=== PATIENT | male | born 1985 | race Caucasian/White ===

== ENCOUNTER 2020-02-20 08:39 | Inpatient (IN) | payer BC, OTHER ==
[2020-02-20] MEDS ORDERED: ACETAMINOPHEN 1000 MG/100 ML VIAL (NON FORMULARY) IVPB ONE (10:49)
[2020-02-20] MEDS ORDERED: ACETAMINOPHEN INJECTION 100 ML IVPB ONE ×2 (11:57→19:43)
[2020-02-20 12:06] LABS: BASO % 0.6 % (0-2.0); EOS % 0.1 % (0-4.5); HEMATOCRIT 47.4 % (35.4-49); HEMOGLOBIN 17.5 GM/dL (11.7-16.9); LYMPH % 9.3 % (8-40); MCH 31.3 pg (25.7-33.7); MCHC 36.9 g/dl (32.0-35.9); MEAN CELL VOLUME 84.8 fl (80-96); MEAN PLT VOLUME 9.4 fl (7.5-11.1); MONO % 5.2 % (3.8-10.2); NEUT % 84.8 % (42.8-82.8); PLATELET COUNT 218 K/MM3 (134-434); RBC 5.59 M/mm3 (4.00-5.60); RDW 13.5 % (11.9-15.9); WHITE BLOOD COUNT 17.9 K/mm3 (4.0-10.0)
[2020-02-20 12:09] LABS: EPI CELLS 4 /uL (0-25.1); HYALINE CASTS 3 /uL (0-3.1); URINE APPEARANCE CLEAR; URINE BACTERIA 53 /uL (0-1359); URINE BILIRUBIN NEGATIVE (NEGATIVE); URINE COLOR YELLOW; URINE GLUCOSE (UA) 3+ (NEGATIVE); URINE KETONE 4+ (NEGATIVE); URINE LEUK ESTERASE NEGATIVE (NEGATIVE); URINE NITRITE NEGATIVE (NEGATIVE); URINE PROTEIN 3+ (NEGATIVE); URINE RBC 11 /uL (0-23.9); URINE UROBILINOGEN 0.2 mg/dL (0.2-1.0); URINE WBC 6 /uL (0-25.8)
[2020-02-20] MEDS ORDERED: SODIUM CHLORIDE 1,000 ML IV STA ×3 (12:11→15:27)
[2020-02-20 12:27] LABS: POTASSIUM 4.6 mmol/L (3.5-5.1)
[2020-02-20 12:30] LABS: ALBUMIN 4.3 g/dl (3.4-5.0); MAGNESIUM 1.8 mg/dL (1.8-2.4)
[2020-02-20 12:33] LABS: CREATININE 0.9 mg/dL (0.55-1.3)
[2020-02-20 12:34] LABS: BILIRUBIN,TOTAL 1.2 mg/dL (0.2-1)
[2020-02-20 13:33] LABS: BLOOD UREA NITROGEN 7.2 mg/dL (7-18); CALCIUM 7.6 mg/dL (8.5-10.1); TOT PROT 8.4 g/dl (6.4-8.2)
[2020-02-20] MEDS ORDERED: CEFTRIAXONE 1 GM in DEXTROSE 5%-WATER - 50 ML IVPB ONE (15:35)
[2020-02-20] MEDS ORDERED: CEFTRIAXONE 1 GM/50 ML BAG ONE (15:38)
[2020-02-20] MEDS ORDERED: ACETAMINOPHEN 1000 MG/100 ML VIAL (NON FORMULARY) IVPB PRN (19:08)
[2020-02-20] MEDS ORDERED: ONDANSETRON 4 MG/2 ML VIAL IVPUSH PRN (19:09)
[2020-02-20] MEDS ORDERED: LACTATED RINGERS SOLUTION 1,000 ML/1,000 ML INFUS.BAG IV SCH (19:15)
[2020-02-20] MEDS ORDERED: morphine CARPU-JECT 2 MG/1 ML DISP.SYRIN IVPUSH ONE (21:17)
[2020-02-21 00:15] VITALS: BMI 40.1
[2020-02-21] MEDS: morphine SULFATE 4 MG/ML VIAL IVPUSH PRN ×3 (00:56→20:36)
[2020-02-21] MEDS: PIPERACILLIN/TAZOB 3.375 GM 3.375 GM in DEXTROSE 5%-WATER - 50 ML IVPB SCH ×4 (02:00→17:17)
[2020-02-21] MEDS ORDERED: DEXTROSE 5%-WATER - 50 ML IVPB ONE ×3 (03:56→17:13)
[2020-02-21] MEDS ORDERED: PIPERACILLIN/TAZOBACTAM 3.375 GM VIAL IVPB ONE ×3 (03:56→17:13)
[2020-02-21] MEDS ORDERED: INSULIN (NOVOLOG) ASPART 100 UNITS/ML 10ML VIAL ONE ×2 (06:49→11:12)
[2020-02-21] MEDS: INSULIN SLIDING SCALE (NOVOLOG) 1 VIAL SQ SCH ×5 (06:50→21:33)
[2020-02-21 08:47] LABS: BASO % 0.3 % (0-2.0); EOS % 0.4 % (0-4.5); HEMATOCRIT 41.3 % (35.4-49); HEMOGLOBIN 14.5 GM/dL (11.7-16.9); LYMPH % 8.1 % (8-40); MCH 29.9 pg (25.7-33.7); MCHC 35.2 g/dl (32.0-35.9); MEAN PLT VOLUME 9.8 fl (7.5-11.1); NEUT % 85.2 % (42.8-82.8); PLATELET COUNT 190 K/MM3 (134-434); RBC 4.86 M/mm3 (4.00-5.60); RDW 13.6 % (11.9-15.9); WHITE BLOOD COUNT 17.9 K/mm3 (4.0-10.0)
[2020-02-21 09:07] LABS: CHLORIDE 106 mmol/L (98-107); POTASSIUM 3.7 mmol/L (3.5-5.1); SODIUM 137 mmol/L (136-145)
[2020-02-21 09:13] LABS: CALCIUM 8.2 mg/dL (8.5-10.1)
[2020-02-21 09:14] LABS: ALBUMIN 3.5 g/dl (3.4-5.0); ANION GAP 15 MMOL/L (8-16); BLOOD UREA NITROGEN 6.4 mg/dL (7-18); CO2 16 mmol/L (21-32); GLUCOSE,RANDOM 184 mg/dL (74-106)
[2020-02-21 09:16] LABS: AMYLASE 395 U/L (25-115)
[2020-02-21 09:17] LABS: CHOLESTEROL 252 mg/dL (50-200); CREATININE 0.7 mg/dL (0.55-1.3); SGOT/AST 31 U/L (15-37); SGPT/ALT 98 U/L (13-61); TRIGLYCERIDES 814 mg/dL (0-150)
[2020-02-21 09:18] LABS: BILIRUBIN,TOTAL 1.2 mg/dL (0.2-1); LDL CHOLESTEROL (ONLY SJRH) 54 mg/dL (5-100); TOT PROT 7.2 g/dl (6.4-8.2)
[2020-02-21 09:19] LABS: HDL CHOLESTEROL 37 mg/dL (40-60)
[2020-02-21 09:24] LABS: ALK PHOS 75 U/L (45-117); LIPASE 2056 U/L (73-393)
[2020-02-21] MEDS: ENOXAPARIN NA (PORCINE) 40 MG/0.4 ML DISP.SYRIN SQ SCH (09:57)
[2020-02-21] MEDS: PANTOPRAZOLE SODIUM 40 MG VIAL IVPUSH SCH (09:57)
[2020-02-21] MEDS: LACTATED RINGERS SOLUTION 1,000 ML/1,000 ML INFUS.BAG IV SCH ×2 (10:00→22:17)
[2020-02-21] MEDS ORDERED: PANTOPRAZOLE SODIUM 40 MG in SODIUM CHLORIDE 100 ML IVPB SCH (10:00)
[2020-02-21] MEDS: VANCOMYCIN 1 GM in D5W (PRE-DOCKED) 1,000 MG/250 ML IVPB SCH ×4 (10:01→15:09)
[2020-02-22] MEDS ORDERED: PIPERACILLIN/TAZOBACTAM 3.375 GM VIAL IVPB ONE ×3 (01:01→16:53)
[2020-02-22] MEDS ORDERED: DEXTROSE 5%-WATER - 50 ML IVPB ONE ×3 (01:02→16:53)
[2020-02-22] MEDS: PIPERACILLIN/TAZOB 3.375 GM 3.375 GM in DEXTROSE 5%-WATER - 50 ML IVPB SCH ×3 (01:12→17:03)
[2020-02-22] MEDS: LACTATED RINGERS SOLUTION 1,000 ML/1,000 ML INFUS.BAG IV SCH ×2 (04:11→09:40)
[2020-02-22] MEDS: INSULIN SLIDING SCALE (NOVOLOG) 1 VIAL SQ SCH ×4 (06:07→21:29)
[2020-02-22 08:45] LABS: BASO % 0.4 % (0-2.0); EOS % 1.3 % (0-4.5); HEMATOCRIT 40.9 % (35.4-49); MCH 29.7 pg (25.7-33.7); MCHC 34.3 g/dl (32.0-35.9); MEAN CELL VOLUME 86.8 fl (80-96); MEAN PLT VOLUME 9.5 fl (7.5-11.1); MONO % 7.5 % (3.8-10.2); NEUT % 80.8 % (42.8-82.8); PLATELET COUNT 171 K/MM3 (134-434); RBC 4.71 M/mm3 (4.00-5.60); WHITE BLOOD COUNT 18.1 K/mm3 (4.0-10.0)
[2020-02-22 08:55] LABS: POTASSIUM 3.5 mmol/L (3.5-5.1)
[2020-02-22 08:58] LABS: CALCIUM 8.5 mg/dL (8.5-10.1)
[2020-02-22 08:59] LABS: BLOOD UREA NITROGEN 6.4 mg/dL (7-18)
[2020-02-22 09:02] LABS: CREATININE 0.7 mg/dL (0.55-1.3)
[2020-02-22 09:03] LABS: BILIRUBIN,TOTAL 1.2 mg/dL (0.2-1); TOT PROT 6.9 g/dl (6.4-8.2)
[2020-02-22] MEDS ORDERED: PT OWN MED DRAWER 7, Y5N ONE (09:31)
[2020-02-22] MEDS: ENOXAPARIN NA (PORCINE) 40 MG/0.4 ML DISP.SYRIN SQ SCH (09:44)
[2020-02-22] MEDS: PANTOPRAZOLE SODIUM 40 MG VIAL IVPUSH SCH (09:44)
[2020-02-22] MEDS: morphine SULFATE 4 MG/ML VIAL IVPUSH PRN (09:57)
[2020-02-22] MEDS ORDERED: PNEUMOCOCCAL 23 VACCINE 0.5 ML VIAL IM ONE (20:00)
[2020-02-22] MEDS ORDERED: FLU VACCINE (FLULAVAL) PF 60 MCG/0.5 ML SYRINGE 2020-2021 IM ONE (20:00)
[2020-02-22] MEDS ORDERED: PNEUMOC 13-VAL CONJ-DIP CRM/PF 0.5 ML DISP.SYRIN IM ONE (20:00)
[2020-02-22] MEDS ORDERED: INSULIN (NOVOLOG) ASPART 100 UNITS/ML 10ML VIAL ONE (20:24)
[2020-02-23] MEDS ORDERED: PIPERACILLIN/TAZOBACTAM 3.375 GM VIAL IVPB ONE ×3 (00:04→16:58)
[2020-02-23] MEDS ORDERED: DEXTROSE 5%-WATER - 50 ML IVPB ONE ×3 (00:05→16:59)
[2020-02-23] MEDS: morphine SULFATE 4 MG/ML VIAL IVPUSH PRN (00:26)
[2020-02-23] MEDS: PIPERACILLIN/TAZOB 3.375 GM 3.375 GM in DEXTROSE 5%-WATER - 50 ML IVPB SCH ×3 (01:06→17:05)
[2020-02-23] MEDS: INSULIN SLIDING SCALE (NOVOLOG) 1 VIAL SQ SCH ×4 (06:02→21:50)
[2020-02-23 08:27] LABS: BASO % 0.5 % (0-2.0); HEMATOCRIT 40.4 % (35.4-49); LYMPH % 9.8 % (8-40); MCH 29.8 pg (25.7-33.7); MCHC 34.6 g/dl (32.0-35.9); MEAN CELL VOLUME 86.1 fl (80-96); MEAN PLT VOLUME 9.2 fl (7.5-11.1); MONO % 7.8 % (3.8-10.2); NEUT % 79.9 % (42.8-82.8); PLATELET COUNT 192 K/MM3 (134-434); RBC 4.69 M/mm3 (4.00-5.60); RDW 13.8 % (11.9-15.9); WHITE BLOOD COUNT 14.8 K/mm3 (4.0-10.0)
[2020-02-23 08:32] LABS: POTASSIUM 3.2 mmol/L (3.5-5.1)
[2020-02-23 08:34] LABS: CALCIUM 8.5 mg/dL (8.5-10.1)
[2020-02-23 08:35] LABS: BLOOD UREA NITROGEN 5.8 mg/dL (7-18)
[2020-02-23 08:38] LABS: CREATININE 0.7 mg/dL (0.55-1.3)
[2020-02-23] MEDS ORDERED: PT OWN MED DRAWER 7, Y5N ONE (09:06)
[2020-02-23] MEDS: PANTOPRAZOLE SODIUM 40 MG VIAL IVPUSH SCH (09:10)
[2020-02-23] MEDS: ENOXAPARIN NA (PORCINE) 40 MG/0.4 ML DISP.SYRIN SQ SCH (09:13)
[2020-02-23] MEDS ORDERED: INSULIN (NOVOLOG) ASPART 100 UNITS/ML 10ML VIAL ONE (16:38)
[2020-02-24] MEDS ORDERED: DEXTROSE 5%-WATER - 50 ML IVPB ONE ×2 (01:05→08:53)
[2020-02-24] MEDS ORDERED: PIPERACILLIN/TAZOBACTAM 3.375 GM VIAL IVPB ONE ×2 (01:05→08:53)
[2020-02-24] MEDS: PIPERACILLIN/TAZOB 3.375 GM 3.375 GM in DEXTROSE 5%-WATER - 50 ML IVPB SCH ×2 (01:07→09:17)
[2020-02-24] MEDS: INSULIN SLIDING SCALE (NOVOLOG) 1 VIAL SQ SCH ×4 (06:45→21:01)
[2020-02-24] MEDS: ENOXAPARIN NA (PORCINE) 40 MG/0.4 ML DISP.SYRIN SQ SCH (09:17)
[2020-02-24 09:35] LABS: BASO % 0.6 % (0-2.0); EOS % 1.9 % (0-4.5); HEMOGLOBIN 14.1 GM/dL (11.7-16.9); LYMPH % 11.7 % (8-40); MCH 29.1 pg (25.7-33.7); MCHC 34.4 g/dl (32.0-35.9); MEAN CELL VOLUME 84.4 fl (80-96); MEAN PLT VOLUME 9.4 fl (7.5-11.1); MONO % 7.5 % (3.8-10.2); NEUT % 78.3 % (42.8-82.8); PLATELET COUNT 237 K/MM3 (134-434); RBC 4.86 M/mm3 (4.00-5.60); RDW 13.6 % (11.9-15.9); WHITE BLOOD COUNT 14.8 K/mm3 (4.0-10.0)
[2020-02-24] MEDS: PANTOPRAZOLE SODIUM 40 MG VIAL IVPUSH SCH (09:44)
[2020-02-24 09:53] LABS: POTASSIUM 3.1 mmol/L (3.5-5.1)
[2020-02-24 10:07] LABS: ALBUMIN 3.2 g/dl (3.4-5.0); BLOOD UREA NITROGEN 8.3 mg/dL (7-18); CALCIUM 8.7 mg/dL (8.5-10.1)
[2020-02-24 10:10] LABS: CREATININE 0.6 mg/dL (0.55-1.3)
[2020-02-24 10:12] LABS: BILIRUBIN,TOTAL 0.9 mg/dL (0.2-1); TOT PROT 7.5 g/dl (6.4-8.2)
[2020-02-24] MEDS: POTASSIUM CHLORIDE TABS 20 MEQ TABLET.ER (FP) PO SCH (13:52)
[2020-02-24] MEDS ORDERED: INSULIN (NOVOLOG) ASPART 100 UNITS/ML 10ML VIAL ONE ×2 (17:11→21:00)
[2020-02-24] MEDS ORDERED: ACETAMINOPHEN 325 MG TABLET (FP) PO PRN (23:11)
[2020-02-25] MEDS: INSULIN SLIDING SCALE (NOVOLOG) 1 VIAL SQ SCH ×4 (06:07→21:04)
[2020-02-25 08:14] LABS: BASO % 0.6 % (0-2.0); HEMATOCRIT 41.3 % (35.4-49); HEMOGLOBIN 14.4 GM/dL (11.7-16.9); LYMPH % 11.1 % (8-40); MCH 29.4 pg (25.7-33.7); MCHC 34.9 g/dl (32.0-35.9); MEAN CELL VOLUME 84.2 fl (80-96); MEAN PLT VOLUME 9.2 fl (7.5-11.1); MONO % 9.2 % (3.8-10.2); NEUT % 77.1 % (42.8-82.8); PLATELET COUNT 249 K/MM3 (134-434); RBC 4.91 M/mm3 (4.00-5.60); RDW 13.3 % (11.9-15.9); WHITE BLOOD COUNT 15.6 K/mm3 (4.0-10.0)
[2020-02-25 08:42] LABS: CALCIUM 8.7 mg/dL (8.5-10.1)
[2020-02-25 08:44] LABS: CREATININE 0.7 mg/dL (0.55-1.3)
[2020-02-25 08:46] LABS: BILIRUBIN,TOTAL 1.4 mg/dL (0.2-1); TOT PROT 7.2 g/dl (6.4-8.2)
[2020-02-25] MEDS: POTASSIUM CHLORIDE TABS 20 MEQ TABLET.ER (FP) PO SCH (10:24)
[2020-02-25] MEDS: PANTOPRAZOLE SODIUM 40 MG VIAL IVPUSH SCH (10:24)
[2020-02-25] MEDS: ENOXAPARIN NA (PORCINE) 40 MG/0.4 ML DISP.SYRIN SQ SCH (11:48)
[2020-02-25] MEDS: KCL 10 MEQ IVPB 10 MEQ/100 ML INFUS.BAG IVPB SCH ×3 (13:23→19:35)
[2020-02-25] MEDS ORDERED: INSULIN (NOVOLOG) ASPART 100 UNITS/ML 10ML VIAL ONE (20:10)
[2020-02-26] MEDS: INSULIN SLIDING SCALE (NOVOLOG) 1 VIAL SQ SCH ×4 (06:03→21:40)
[2020-02-26 09:27] LABS: BASO % 0.7 % (0-2.0); EOS % 2.1 % (0-4.5); HEMATOCRIT 38.3 % (35.4-49); HEMOGLOBIN 13.3 GM/dL (11.7-16.9); LYMPH % 15.1 % (8-40); MCH 29.4 pg (25.7-33.7); MCHC 34.7 g/dl (32.0-35.9); MEAN CELL VOLUME 84.8 fl (80-96); MEAN PLT VOLUME 9.5 fl (7.5-11.1); MONO % 11.3 % (3.8-10.2); NEUT % 70.8 % (42.8-82.8); PLATELET COUNT 215 K/MM3 (134-434); RBC 4.51 M/mm3 (4.00-5.60); RDW 13.2 % (11.9-15.9); WHITE BLOOD COUNT 12.7 K/mm3 (4.0-10.0)
[2020-02-26 09:43] LABS: POTASSIUM 3.1 mmol/L (3.5-5.1)
[2020-02-26 09:44] LABS: ALBUMIN 2.8 g/dl (3.4-5.0); BLOOD UREA NITROGEN 8.4 mg/dL (7-18); CALCIUM 8.6 mg/dL (8.5-10.1)
[2020-02-26 09:46] LABS: CREATININE 0.7 mg/dL (0.55-1.3)
[2020-02-26 09:47] LABS: BILIRUBIN,TOTAL 0.6 mg/dL (0.2-1)
[2020-02-26] MEDS: ENOXAPARIN NA (PORCINE) 40 MG/0.4 ML DISP.SYRIN SQ SCH (10:01)
[2020-02-26] MEDS: POTASSIUM CHLORIDE TABS 20 MEQ TABLET.ER (FP) PO SCH (10:01)
[2020-02-26] MEDS: PANTOPRAZOLE SODIUM 40 MG VIAL IVPUSH SCH (10:01)
[2020-02-26] MEDS: KCL 10 MEQ IVPB 10 MEQ/100 ML INFUS.BAG IVPB SCH ×3 (20:35→23:49)
[2020-02-26] MEDS: FENOFIBRIC ACID 135 MG CAP PO SCH (20:35)
[2020-02-26] MEDS: ROSUVASTATIN CA 10 MG TABLET (FP) PO SCH ×2 (20:35→21:00)
[2020-02-27] MEDS: INSULIN SLIDING SCALE (NOVOLOG) 1 VIAL SQ SCH ×2 (06:06→12:54)
[2020-02-27 06:41] VITALS: TEMP 98.2
[2020-02-27] MEDS ORDERED: metFORMIN HCL 500 MG TABLET (FP) PO SCH (07:00)
[2020-02-27 09:38] LABS: BASO % 0.8 % (0-2.0); EOS % 2.6 % (0-4.5); HEMOGLOBIN 13.6 GM/dL (11.7-16.9); MCH 29.7 pg (25.7-33.7); MCHC 34.8 g/dl (32.0-35.9); MEAN CELL VOLUME 85.3 fl (80-96); MEAN PLT VOLUME 9.6 fl (7.5-11.1); MONO % 13.5 % (3.8-10.2); NEUT % 64.1 % (42.8-82.8); PLATELET COUNT 212 K/MM3 (134-434); RBC 4.57 M/mm3 (4.00-5.60); RDW 13.1 % (11.9-15.9); WHITE BLOOD COUNT 10.3 K/mm3 (4.0-10.0)
[2020-02-27] MEDS: POTASSIUM CHLORIDE TABS 20 MEQ TABLET.ER (FP) PO SCH (10:08)
[2020-02-27] MEDS: FENOFIBRIC ACID 135 MG CAP PO SCH (10:08)
[2020-02-27] MEDS: PANTOPRAZOLE SODIUM 40 MG VIAL IVPUSH SCH (10:09)
[2020-02-27] MEDS: ENOXAPARIN NA (PORCINE) 40 MG/0.4 ML DISP.SYRIN SQ SCH (10:09)
[2020-02-27 10:10] LABS: POTASSIUM 3.7 mmol/L (3.5-5.1)
[2020-02-27 10:14] LABS: ALBUMIN 2.9 g/dl (3.4-5.0); BLOOD UREA NITROGEN 8.5 mg/dL (7-18); CALCIUM 8.6 mg/dL (8.5-10.1)
[2020-02-27 10:17] LABS: CREATININE 0.9 mg/dL (0.55-1.3)
[2020-02-27 10:19] LABS: BILIRUBIN,TOTAL 0.6 mg/dL (0.2-1)
[2020-02-27 10:21] LABS: TOT PROT 6.9 g/dl (6.4-8.2)
[2020-02-27 14:37] VITALS: BP 125/91; PULSE 111
[2020-02-28] MEDS ORDERED: MULTIVITAMINS (DAILY MVI) TABLET (FP) PO SCH (10:00)
== END 2020-02-27 16:34 | disposition home or self-care (01) | DRG 439 ==
LOC: JER 08:39 → JERBED 16:06 → J8W 23:20
PROVIDERS: ADMIT Internal Medicine; ATTEND Internal Medicine
DX: K85.20 Alcohol induced acute pancreatitis without necrosis or infection (principal); Z68.41 Body mass index [BMI] 40.0-44.9, adult; E66.01 Morbid (severe) obesity due to excess calories; E78.5 Hyperlipidemia, unspecified; E11.9 Type 2 diabetes mellitus without complications
CPT/HCPCS: 36415; 71046-TC-FY; 74170-TC; 74178-TC; 76705-TC; 80053; 80061; 81003; 82010; 82150; 82550; 82962; 83605; 83615; 83690; 83721; 83735; 84484; 85025; 86140; 87086; 90732; 93005; 93010; 99285-25; C9803; G0008; G0009; J0131; Q2036; Q9967; U0003

== ENCOUNTER 2023-01-31 18:51 | Inpatient (IN) | payer BC ==
[2023-01-31 19:03] VITALS: BMI 33.4
[2023-01-31] MEDS ORDERED: FAMOTIDINE 20 MG/50 ML IVPB 20 MG/50 ML MG IVPB ONE (19:16)
[2023-01-31] MEDS ORDERED: KETOROLAC TROMETHAMINE 15 MG/ML VIAL IVPUSH ONE (19:16)
[2023-01-31] MEDS ORDERED: MAG HYDROX/AL HYDROX/SIMETH -MYLANTA- ORAL SUSPENSION PO ONE (19:16)
[2023-01-31] MEDS ORDERED: SUCRALFATE 1 GM/10 ML UNIT DOSE CUPS PO ONE (19:35)
[2023-01-31] MEDS ORDERED: PANTOPRAZOLE SODIUM 40 MG VIAL IVPUSH ONE (19:36)
[2023-01-31] MEDS ORDERED: HYDROmorphone HCl 2 MG/ML VIAL IVPUSH ONE (19:52)
[2023-01-31] MEDS ORDERED: SUCRALFATE 1 GM TABLET (FP) ONE (20:38)
[2023-01-31] MEDS ORDERED: HYDROmorphone HCl 2 MG/ML VIAL ONE (20:38)
[2023-01-31] MEDS ORDERED: MAG HYDROX/AL HYDROX/SIMETH 30 ML UNIT-DOSE CUP ONE (20:39)
[2023-01-31] MEDS ORDERED: KETOROLAC TROMETHAMINE 15 MG/ML VIAL ONE (20:39)
[2023-01-31] MEDS ORDERED: PANTOPRAZOLE SODIUM 40 MG VIAL ONE (20:39)
[2023-01-31 20:56] LABS: CHLORIDE 98 mmol/L (98-107); POTASSIUM 4.5 mmol/L (3.5-5.1); SODIUM 133 mmol/L (136-145)
[2023-01-31 20:59] LABS: ANION GAP 8 mmol/L (4-13); CO2 27 mmol/L (21-32); GLUCOSE,RANDOM 325 mg/dL (74-106)
[2023-01-31 21:02] LABS: CREATININE 0.9 mg/dL (0.55-1.3)
[2023-01-31 21:38] LABS: ALBUMIN 3.6 g/dl (3.4-5.0); ALK PHOS 87 U/L (45-117); BILIRUBIN,TOTAL 1.4 mg/dL (0.2-1); BLOOD UREA NITROGEN 12.3 mg/dL (7-18); CALCIUM 6.5 mg/dL (8.5-10.1); LIPASE 4514 U/L (73-393); TOT PROT 7.5 g/dl (6.4-8.2)
[2023-01-31 21:50] LABS: BASO % 0.8 % (0-2.0); EOS % 0.7 % (0-4.5); HEMATOCRIT 43.6 % (35.4-49); HEMOGLOBIN 14.9 GM/dL (11.7-16.9); LYMPH % 19.1 % (8-40); MEAN CELL VOLUME 84.7 fl (80-96); MEAN PLT VOLUME 9.7 fl (7.5-11.1); MONO % 5.2 % (3.8-10.2); NEUT % 74.2 % (42.8-82.8); RBC 5.14 M/mm3 (4.00-5.60); RDW 12.8 % (11.9-15.9)
[2023-01-31] MEDS ORDERED: SODIUM CHLORIDE 1,000 ML IV STA (22:03)
[2023-01-31 22:06] LABS: WHITE BLOOD COUNT 17.2 K/mm3 (4.0-10.0)
[2023-01-31 22:08] LABS: PLATELET COUNT 207 10^3/uL (134-434)
[2023-01-31 22:12] LABS: MCHC 34.2 g/dl (32.0-35.9)
[2023-01-31 23:53] LABS: CHLORIDE 105 mmol/L (98-107); POTASSIUM 3.4 mmol/L (3.5-5.1); SODIUM 137 mmol/L (136-145)
[2023-01-31 23:56] LABS: ALBUMIN 3.1 g/dl (3.4-5.0); ANION GAP 8 mmol/L (4-13); CO2 24 mmol/L (21-32); GLUCOSE,RANDOM 283 mg/dL (74-106)
[2023-02-01] LABS: CREATININE 0.7 mg/dL (0.55-1.3)
[2023-02-01 00:01] LABS: BILIRUBIN,TOTAL 1.4 mg/dL (0.2-1)
[2023-02-01] MEDS ORDERED: PIPERACILLIN/TAZOB 3.375 GM 3.375 GM in DEXTROSE 5%-WATER - 50 ML IVPB ONE (00:53)
[2023-02-01] MEDS ORDERED: PIPERACILLIN/TAZOB 3.375 GM 3.375 GM/50 ML BAG IVPB ONE ×3 (01:08→17:16)
[2023-02-01 01:35] LABS: ALK PHOS 70 U/L (45-117); BLOOD UREA NITROGEN 11.4 mg/dL (7-18)
[2023-02-01] MEDS ORDERED: ONDANSETRON 4 MG/2 ML VIAL IVPUSH PRN (06:25)
[2023-02-01] MEDS ORDERED: morphine SULFATE 4 MG/ML VIAL ONE ×2 (06:34→22:41)
[2023-02-01] MEDS: LACTATED RINGERS SOLUTION 1,000 ML/1,000 ML INFUS.BAG IV SCH (06:42)
[2023-02-01] MEDS: morphine SULFATE 4 MG/ML VIAL IVPUSH PRN ×2 (06:43→22:44)
[2023-02-01] MEDS: INSULIN SLIDING SCALE (NOVOLOG) 1 VIAL SQ SCH ×4 (08:48→22:39)
[2023-02-01] MEDS ORDERED: ENOXAPARIN NA (PORCINE) 40 MG/0.4 ML DISP.SYRIN SQ ONE (08:51)
[2023-02-01 08:53] LABS: CHLORIDE 104 mmol/L (98-107); POTASSIUM 3.7 mmol/L (3.5-5.1); SODIUM 136 mmol/L (136-145)
[2023-02-01 08:55] LABS: BASO % 3.5 % (0-2.0); EOS % 1.1 % (0-4.5); HEMATOCRIT 42.6 % (35.4-49); HEMOGLOBIN 15.3 GM/dL (11.7-16.9); LYMPH % 10.8 % (8-40); MCH 29.9 pg (25.7-33.7); MONO % 5.7 % (3.8-10.2); NEUT % 78.9 % (42.8-82.8); PLATELET COUNT 182 10^3/uL (134-434); RBC 5.13 M/mm3 (4.00-5.60); RDW 12.9 % (11.9-15.9); WHITE BLOOD COUNT 14.1 K/mm3 (4.0-10.0)
[2023-02-01 08:58] LABS: ALBUMIN 3.4 g/dl (3.4-5.0); ANION GAP 12 mmol/L (4-13); CO2 19 mmol/L (21-32); GLUCOSE,RANDOM 246 mg/dL (74-106)
[2023-02-01] MEDS: ENOXAPARIN NA (PORCINE) 40 MG/0.4 ML DISP.SYRIN SQ SCH (09:00)
[2023-02-01 09:01] LABS: CREATININE 0.6 mg/dL (0.55-1.3)
[2023-02-01] MEDS: PIPERACILLIN/TAZOB 3.375 GM 3.375 GM in DEXTROSE 5%-WATER - 50 ML IVPB SCH ×2 (09:01→17:23)
[2023-02-01 09:03] LABS: BILIRUBIN,TOTAL 0.9 mg/dL (0.2-1)
[2023-02-01 09:04] LABS: ALK PHOS 71 U/L (45-117)
[2023-02-01] MEDS ORDERED: PIPERACILLIN/TAZOB 3.375 GM 3.375 GM in DEXTROSE 5%-WATER - 50 ML IVPB SCH (10:00)
[2023-02-01 10:12] LABS: BLOOD UREA NITROGEN 8.6 mg/dL (7-18); CALCIUM 7.6 mg/dL (8.5-10.1); LIPASE 4541 U/L (73-393); SGOT/AST 66 U/L (15-37); TOT PROT 6.5 g/dl (6.4-8.2)
[2023-02-02 02:53] VITALS: RESP 18
[2023-02-02] MEDS: PIPERACILLIN/TAZOB 3.375 GM 3.375 GM in DEXTROSE 5%-WATER - 50 ML IVPB SCH ×3 (02:58→17:31)
[2023-02-02] MEDS: INSULIN SLIDING SCALE (NOVOLOG) 1 VIAL SQ SCH ×4 (06:23→22:02)
[2023-02-02] MEDS: LACTATED RINGERS SOLUTION 1,000 ML/1,000 ML INFUS.BAG IV SCH ×2 (08:04→18:27)
[2023-02-02] MEDS: ENOXAPARIN NA (PORCINE) 40 MG/0.4 ML DISP.SYRIN SQ SCH (10:04)
[2023-02-02 10:07] LABS: BASO % 0.4 % (0-2.0); EOS % 2.2 % (0-4.5); HEMATOCRIT 42.9 % (35.4-49); HEMOGLOBIN 14.6 GM/dL (11.7-16.9); LYMPH % 14.9 % (8-40); MCH 28.6 pg (25.7-33.7); MCHC 34.1 g/dl (32.0-35.9); MEAN CELL VOLUME 83.9 fl (80-96); MEAN PLT VOLUME 8.7 fl (7.5-11.1); NEUT % 76.5 % (42.8-82.8); PLATELET COUNT 179 10^3/uL (134-434); RBC 5.11 M/mm3 (4.00-5.60); RDW 13.3 % (11.9-15.9); WHITE BLOOD COUNT 13.1 K/mm3 (4.0-10.0)
[2023-02-02 10:43] LABS: POTASSIUM 3.4 mmol/L (3.5-5.1)
[2023-02-02 11:02] LABS: ALBUMIN 3.3 g/dl (3.4-5.0); CREATININE 0.6 mg/dL (0.55-1.3)
[2023-02-02 11:03] LABS: TOT PROT 6.6 g/dl (6.4-8.2)
[2023-02-02 11:04] LABS: BLOOD UREA NITROGEN 6.9 mg/dL (7-18)
[2023-02-02 11:06] LABS: CALCIUM 8.8 mg/dL (8.5-10.1)
[2023-02-02] MEDS ORDERED: KETOROLAC TROMETHAMINE 15 MG/ML VIAL IVPUSH PRN (17:35)
[2023-02-03] MEDS: PIPERACILLIN/TAZOB 3.375 GM 3.375 GM in DEXTROSE 5%-WATER - 50 ML IVPB SCH ×2 (05:32→10:54)
[2023-02-03] MEDS: LACTATED RINGERS SOLUTION 1,000 ML/1,000 ML INFUS.BAG IV SCH (05:34)
[2023-02-03] MEDS: INSULIN SLIDING SCALE (NOVOLOG) 1 VIAL SQ SCH ×4 (06:18→22:18)
[2023-02-03 10:01] LABS: BASO % 0.4 % (0-2.0); EOS % 3.6 % (0-4.5); HEMATOCRIT 40.1 % (35.4-49); HEMOGLOBIN 13.8 GM/dL (11.7-16.9); LYMPH % 16.3 % (8-40); MCH 29.2 pg (25.7-33.7); MCHC 34.4 g/dl (32.0-35.9); MEAN CELL VOLUME 84.9 fl (80-96); MEAN PLT VOLUME 8.7 fl (7.5-11.1); MONO % 6.8 % (3.8-10.2); NEUT % 72.9 % (42.8-82.8); PLATELET COUNT 179 10^3/uL (134-434); RBC 4.72 M/mm3 (4.00-5.60); RDW 12.9 % (11.9-15.9); WHITE BLOOD COUNT 10.7 K/mm3 (4.0-10.0)
[2023-02-03 10:21] LABS: POTASSIUM 3.4 mmol/L (3.5-5.1)
[2023-02-03 10:28] LABS: BLOOD UREA NITROGEN 8.6 mg/dL (7-18); CALCIUM 8.8 mg/dL (8.5-10.1)
[2023-02-03 10:29] LABS: ALBUMIN 3.1 g/dl (3.4-5.0)
[2023-02-03 10:31] LABS: CREATININE 0.6 mg/dL (0.55-1.3)
[2023-02-03 10:34] LABS: TOT PROT 6.5 g/dl (6.4-8.2)
[2023-02-03] MEDS: ENOXAPARIN NA (PORCINE) 40 MG/0.4 ML DISP.SYRIN SQ SCH (10:57)
[2023-02-03] MEDS: LIPASE/PROTEASE/AMYLASE 36,000 UNIT CAPSULE PO SCH ×2 (12:47→17:29)
[2023-02-03] MEDS ORDERED: POTASSIUM CHLORIDE ORAL LIQUID 20 MEQ/15 ML PO ONE (15:12)
[2023-02-04] MEDS: INSULIN SLIDING SCALE (NOVOLOG) 1 VIAL SQ SCH ×2 (06:18→11:43)
[2023-02-04] MEDS: LIPASE/PROTEASE/AMYLASE 36,000 UNIT CAPSULE PO SCH ×2 (08:16→11:45)
[2023-02-04 10:28] LABS: BASO % 0.4 % (0-2.0); EOS % 3.7 % (0-4.5); HEMATOCRIT 41.7 % (35.4-49); HEMOGLOBIN 14.4 GM/dL (11.7-16.9); LYMPH % 19.5 % (8-40); MCH 29.1 pg (25.7-33.7); MCHC 34.6 g/dl (32.0-35.9); MEAN CELL VOLUME 83.9 fl (80-96); MEAN PLT VOLUME 8.7 fl (7.5-11.1); MONO % 7.2 % (3.8-10.2); NEUT % 69.2 % (42.8-82.8); PLATELET COUNT 224 10^3/uL (134-434); RBC 4.97 M/mm3 (4.00-5.60); RDW 13.1 % (11.9-15.9); WHITE BLOOD COUNT 8.4 K/mm3 (4.0-10.0)
[2023-02-04 10:39] LABS: POTASSIUM 3.2 mmol/L (3.5-5.1)
[2023-02-04 10:43] LABS: ALBUMIN 3.1 g/dl (3.4-5.0); BLOOD UREA NITROGEN 6.6 mg/dL (7-18)
[2023-02-04 10:45] LABS: CREATININE 0.7 mg/dL (0.55-1.3)
[2023-02-04 10:47] LABS: BILIRUBIN,TOTAL 0.7 mg/dL (0.2-1); TOT PROT 6.8 g/dl (6.4-8.2)
[2023-02-04] MEDS: ENOXAPARIN NA (PORCINE) 40 MG/0.4 ML DISP.SYRIN SQ SCH (11:18)
[2023-02-04] MEDS ORDERED: POTASSIUM CHLORIDE TABS 20 MEQ TABLET.ER (FP) PO ONE (12:45)
[2023-02-04 20:08] VITALS: BP 140/78; PULSE 78; TEMP 98.2
== END 2023-02-04 13:35 | disposition home or self-care (01) | DRG 440 ==
LOC: JER 18:51 → JERBED 02-01 00:43 → J5S 02-02 01:30
PROVIDERS: ADMIT Internal Medicine; ATTEND Internal Medicine
DX: K85.90 Acute pancreatitis without necrosis or infection, unspecified (principal); E11.9 Type 2 diabetes mellitus without complications; E66.9 Obesity, unspecified; Z68.33 Body mass index [BMI] 33.0-33.9, adult
CPT/HCPCS: 36415; 71046-TC-FY; 74177-TC; 74182-TC; 80053; 82962; 83036; 83690; 84484; 85025; 93005; 93010; 99285-25; Q9967